=== PATIENT | male | born 1970 | race Caucasian/White ===

== ENCOUNTER 2018-11-26 12:33 | Inpatient (IN) ==
--- NOTE | 2018-11-26 12:59 | Emergency Department Note ---
Disposition Clinical Impression: Anemia, Renal failure Disposition: Admitted As Inpatient Condition: Serious Forms: ED Satisfaction Letter Time of Disposition: 13:38 General Adult HPI - General Chief complaint: ED Recheck/Abnormal Lab/Rx Stated complaint: abnormal labs Time Seen by Provider: 11/26/18 12:44 Source: patient Mode of arrival: ambulatory Limitations: no limitations Nursing Notes Reviewed: Yes Vital Signs Reviewed: Yes - History of Present Illness HPI Narrative: Patient presents emergency Department with chief complaint of abnormal laboratory studies. He states he received a phone call from his primary care physician's office today telling him that he was in renal failure and that he needed to get to the hospital. He has not had laboratory studies checked in a long time according to him. He states that he was getting these laboratory s tudies done for preoperative labs as he will supposed to have a laminectomy. He denies headache neck pain chest pain shortness of breath dizziness weakness fevers chills cough sputum production palpitations abdominal pain. He denies decreased urine output states he urinates 7-8 times a day feels like he completely empties his bladder every time has had no decreased urine, and no change. He has had no testicular pain no leg pain or leg swelling. He denies any palpitations. He denies any acute pain he has chronic low back pain which is unchanged from his baseline. States that he had no idea anything was wrong. He denies any black or bloody stool. Denies any other acute concerns. Pain Scale: 0 - Related Data Allergies Allergy/AdvReac Type Severity Reaction Status Date / Time Penicillins [PCN] Allergy Rash Verified 09/11/17 08:01 All systems ED: reviewed and negative except as stated. Review of Systems: As Per HPI Past Medical History - Past Medical History Medical history: Reports: hypertension Surgical history: Reports: orthopedic, other Psychiatric history: Reports: no psych history - Social History Smoking Status: Current every day smoker Smokeless Tobacco Status: No Alcohol use: Reports: none Drug use: Reports: none Physical Exam - General Limitations: no limitations, other (Slightly pale in appearance) General appearance: alert, in no apparent distress - Head Head exam: atraumatic, normocephalic - Eye Eye exam: Present: normal appearance, PERRL, EOMI, conjunctival injection (Slightly pale). Absent: scleral icterus - ENT ENT exam: normal exam - Neck Neck exam: Present: normal inspection - Chest Chest inspection: Present: normal inspection, symmetric chest wall rise - Respiratory Respiratory exam: Present: normal lung sounds bilaterally. Absent: respiratory distress - Cardiovascular Cardiovascular exam: Present: regular rate, normal rhythm, normal heart sounds. Absent: bradycardia, tachycardia, JVD - Abdominal Exam Abdominal exam: Present: soft, Non-Tender - Extremities Exam Extremities exam: Present: normal inspection, full ROM, other (Trace lower nonpitting edema no unilateral swelling palpable cord Homans sign or clinical evidence of DVT) - Expanded Lower Extremity Exam Foot/toe exam: Present: normal inspection, full ROM Neurovascular/Tendon exam: Present: normal capillary refill. Absent: pulse deficit, motor deficit, sensory deficit, extremity cold to touch - Back Exam Back exam: Present: normal inspection, full ROM. Absent: tenderness, CVA tenderness (R), CVA tenderness (L) - Neurological Exam Neurological exam: Present: alert, oriented X3, CN II-XII intact, normal gait - Psychiatric Psychiatric exam: Present: normal affect, normal mood - Skin Skin exam: Present: warm, dry, intact, normal color. Absent: rash, cyanosis Course Vital Signs Temperature 98.7 F 11/26/18 12:39 Pulse Rate 84 11/26/18 12:39 Respiratory Rate 18 11/26/18 12:39 Blood Pressure 182/105 11/26/18 12:39 O2 Sat by Pulse Oximetry 99 11/26/18 12:39 Temperature 98.7 F 11/26/18 12:39 Pulse Rate 84 11/26/18 12:39 Respiratory Rate 18 11/26/18 12:39 Blood Pressure 182/105 11/26/18 12:39 O2 Sat by Pulse Oximetry 99 11/26/18 12:39 Oxygen Delivery Oxygen Delivery Room Air Medical Decision Making - [facility] Narrative Medical decision making narrative: Patient had an IV placed. EKG was obtained, EKG was a normal sinus rhythm, question slight prominence of the T waves but no true peak T waves no UT prolongation no QRS widening no QT abnormality, no evidence of hyperkalemia or acute ischemia. Chest x-ray as interpreted by radiology showed no acute findings. CBC demonstrated a hemoglobin 8.2, however his hemoglobin was 8.8 within the last 1 month, and 9 approximate 2 months ago, I believe that in the face of this patient being without tachycardia without hypotension, and in fact has hypertension, without any symptoms of GI bleeding, that this is likely related to renal failure probably long-standing undiagnosed renal failure based upon his laboratory studies. I believe this is likely related to chronic renal disease. No indication for transfusion in the emergency department further evaluation for progressive anemia, as well as renal failure as inpatient renal panel d mehnaztrated a BUN of 70 with a creatinine of 6.35 mildly elevated blood glucose of 134 slightly low bicarbonate of 17 but no evidence of gap acidosis. Sodium was within acceptable limits potassium was 5.2 without significant hyperkalemia. He was given IV fluids. Bladder scan revealed no evidence of significant urinary retention, and patient was able to urinate over 300 mL here in the ER spontaneously. Patient will be admitted to the hospital for further evaluation and management of renal failure, chronicity unknown, as he has no old laboratory studies., with anemia. - Medical Records Medical records reviewed: Yes I reviewed the patient's medical records. - Lab Data Lab results reviewed: Yes I reviewed the patient's lab results. Result diagrams: 11/26/18 12:45 11/26/18 12:45 Lab Results 11/26/18 11/26/18 11/26/18 Range/Units 12:45 12:45 13:02 WBC 9.8 (4.3-11.1) K/mcL RBC 2.89 L (4.19-5.50) M/mcL Hgb 8.2 L (12.9-16.9) g/dL Hct 25.4 L (37.5-50.1) % MCV 87.9 (83.0-100.0) fL MCH 28.4 (28.0-33.3) pg MCHC 32.3 (31.6-35.5) g/dL RDW 13.2 (11.5-14.5) % Plt Count 288 (140-400) K/mcL MPV 9.5 (9.4-12.4) fL Immature Gran % 0.3 (0-4) % Seg Neutrophils % 62.7 % Lymphocytes % 23.5 % Monocytes % 7.2 % Eosinophils % 5.8 % Basophils % 0.5 % Neutrophils # 6.2 (1.6-8.9) K/mcL Lymphocytes # 2.3 (0.6-4.6) K/mcL Monocytes # 0.7 (0.0-1.3) K/mcL Eosinophils # 0.6 (0.0-0.6) K/mcL Basophils # 0.1 (0.0-0.2) K/mcL Sodium 138 (136-145) mEq/L Potassium 5.2 H (3.5-5.1) mEq/L Chloride 112 H (98-107) mEq/L Carbon Dioxide 17 L (23-29) mEq/L BUN 70 H (6-20) mg/dL Creatinine 6.35 H (0.70-1.30) mg/dL Est GFR ( Amer) 11 L (> 60) Est GFR (Non-Af Amer) 9 L (> 60) BUN/Creatinine Ratio 11 (6-26) Glucose 134 H (70-105) mg/dL Calculated Osmolality 308 H (280-300) Calcium 8.6 (8.6-10.3) mg/dL Magnesium 1.6 (1.6-2.6) mg/dL Urine Color Yellow (Yellow) Urine Clarity Clear (Clear) Urine pH 5.5 (5.0-8.0) pH Units Ur Specific [place] 1.017 (1.010-1.025) Urine Protein 100 H (Neg-Trace) mg/dL Urine Glucose (UA) Normal (Normal) mg/dL Urine Ketones Negative (Negative) mg/dL Urine Blood Large H (Negative) Urine Nitrite Negative (Negative) Urine Bilirubin Negative (Negative) Urine Urobilinogen Normal (Normal) mg/dL Ur Leukocyte Esterase Negative (Negative) Urine Microscopic RBC 30-50 H (0-3) per hpf Urine Microscopic WBC 0-3 (0-3) per hpf Ur Squamous Epith Cells Moderate H (None-Few) per lpf Urine Bacteria None Seen (None-Few) per hpf Hyaline Casts None Seen (None-Few) per lpf Ur Culture Indicated? NO (NO)
[2018-11-26 13:09] LABS: Basophils # 0.1 K/mcL (0.0-0.2); Basophils % 0.5 %; Eosinophils # 0.6 K/mcL (0.0-0.6); Eosinophils % 5.8 %; Hematocrit 25.4 % (37.5-50.1); Hemoglobin 8.2 g/dL (12.9-16.9); Immature Granulocytes % 0.3 % (0-4); Lymphocytes # 2.3 K/mcL (0.6-4.6); Lymphocytes % 23.5 %; Mean Corpuscular HGB Conc 32.3 g/dL (31.6-35.5); Mean Corpuscular Hemoglobin 28.4 pg (28.0-33.3); Mean Corpuscular Volume 87.9 fL (83.0-100.0); Mean Platelet Volume 9.5 fL (9.4-12.4); Monocytes # 0.7 K/mcL (0.0-1.3); Monocytes % 7.2 %; Neutrophils # 6.2 K/mcL (1.6-8.9); Platelet Count 288 K/mcL (140-400); Red Blood Count 2.89 M/mcL (4.19-5.50); Red Cell Distribution Width 13.2 % (11.5-14.5); Segmented Neutrophils % 62.7 %; White Blood Count 9.8 K/mcL (4.3-11.1)
[2018-11-26 13:20] LABS: Bilirubin,Urine Negative (Negative); Blood,Urine Large (Negative); Clarity,Urine Clear (Clear); Color,Urine Yellow (Yellow); Glucose,Urine (UA) Normal (Normal); Ketones,Urine Negative (Negative); Leukocyte Esterase,Urine Negative (Negative); Nitrite,Urine Negative (Negative); PH,Urine 5.5 pH Units (5.0-8.0); Protein,Urine 100 mg/dL (Neg-Trace); Specific Gravity,Urine 1.017 (1.010-1.025); Urobilinogen,Urine Normal (Normal)
[2018-11-26 13:23] LABS: Bacteria,Urine None Seen per hpf (None-Few); Hyaline Casts,Urine None Seen per lpf (None-Few); RBC,Urine 30-50 per hpf (0-3); Squamous Epithelial Cell,Urine Moderate per lpf (None-Few); WBC,Urine 0-3 per hpf (0-3)
[2018-11-26 13:27] LABS: Calcium 8.6 mg/dL (8.6-10.3); Magnesium 1.6 mg/dL (1.6-2.6); Potassium 5.2 mEq/L (3.5-5.1)
[2018-11-26] MEDS ORDERED: 0.9 % Sodium Chloride 1,000 ML IVC ONE (13:34)
[2018-11-26] MEDS ORDERED: Ondansetron ODT 4 MG TAB.RAPDIS SL PRN (15:35)
[2018-11-26] MEDS ORDERED: Naloxone 0.4 MG/ML INJ IVP PRN (15:35)
[2018-11-26] MEDS ORDERED: Acetaminophen 325 MG TABLET PO PRN (15:35)
[2018-11-26] MEDS ORDERED: *HR* HYDROcodone/Acet 5/325 mg TABLET PO PRN (15:57)
[2018-11-26 16:05] LABS: Uric Acid 8.1 mg/dL (2.3-7.6)
--- NOTE | 2018-11-26 16:05 | Nephrology Consult Note ---
<Sarah Mesa - Last Filed: 11/27/18 09:30> Date of Encounter: 11/27/18 Time of Encounter: 15:59 Assessment and Plan (1) DIONNE (acute kidney injury) Status: Acute Unknown kidney function at baseline. GFR is 9 today. Avoid nephrotoxins and renal dose all medications. Strict I/O Daily weights. D/c Motrin. Hold Lisinopril. (2) Hyperkalemia Status: Acute K is 5.2, stable. Low potassium, renal diet. (3) Anemia Status: Suspected Hgb is 8.2, no obvious signs of blood. Iron profile ordered for in the am. Qualifiers: Anemia type: due to chronic kidney disease Chronic kidney disease stage: unspecified stage Qualified Code(s): N18.9 - Chronic kidney disease, unspecified; D63.1 - Anemia in chronic kidney disease History of Present Illness - Reason for Consult Consult date: 11/26/18 Acute Kidney Injury Requesting physician: Lul Anglin - Chief Complaint acute kidney injury - History of Present Illness Mr. Hawkins is a 48 year old male who presented to ED under the advice of his PCP. He established with his current primary care provider "a few weeks ago" and he wanted some routine labs done. The patient is scheduled for stimulator related to an old workers comp injury in 1999. Under the advisement of his current Worker's Compensation physician he was taking 800 mg of Motrin 3 times a day every day for approximately the last year. PMH: Hypertension. Denies chest pain or shortness of breath. Denies nausea, vomiting or diarrhea. Denies any dysuria or other urinary symptoms. Denies hematuria. Reports he voids 7 or 8 times a day without difficulty. Denies fatigue. [facility] were consulted to up his acute kidney injury. There are no previous lab work in the present system. Patient reports he does not know the last time his blood work was drawn. He has been disabled from work since 2008 and gets disability and Social Security, and Worker's Comp. DIONNE workup has been ordered. Retroperitoneal ultrasound ordered. Serum and urine studies ordered. Blood pressure at bedside was 179/111 and 193/104. Patient was started on lisinopril by PCP in the last few weeks, recommend holding that due to DIONNE. CKD workup ordered by primary team, will await results. Lives at home alone. Sister and mother are at bedside. Patient is good historian and provides accurate information. Is a current 1 pack per day smoker. An IV EtOH or illicit drug use. No family history of chronic kidney disease or hemodialysis. Has never been on dialysis in the past. Past Med Surg Social Fam HX - Past Medical History Medical history: hypertension Additional medical history: Normocytic Anemia. Sleep Apnea. Smoker. Tobacco Use. Other Intervertebral Disc Displacement, Lumbar Region. Postlaminectomy Syndrome. Obese Body Habits. Laminectomy. Lumbar Post Laminectomy Syndrome Psychiatric history: no psych history - Past Surgical History Surgical History: orthopedic, other Additional surgical history: back surgery. right hand surgery x2. Laminectomy. SCS Trial - Social History Smoking Status: Current every day smoker Packs per day: 1 Smokeless Tobacco Status: No Alcohol use: none Drug use: none Medications and Allergies Carvedilol [Coreg] 3.125 mg PO BIDWM #30 tablet 11/29/18 [Rx] Carvedilol [Coreg] 3.125 mg PO BIDWM #6 tablet 11/29/18 [Rx] Cholecalciferol (D-3) [Vitamin D] 1,000 unit PO DAILY #3 tablet 11/29/18 [Rx] Cholecalciferol (D-3) [Vitamin D] 1,000 unit PO DAILY #30 tablet 11/29/18 [Rx] Ferrous Sulfate 325 mg PO BIDWM #6 tablet 11/29/18 [Rx] Ferrous Sulfate 325 mg PO BIDWM #60 tablet 11/29/18 [Rx] Gabapentin [Neurontin] 100 mg PO TID #9 capsule 11/29/18 [Rx] Gabapentin [Neurontin] 100 mg PO TID #90 capsule 11/29/18 [Rx] Nicotine Patch [Nicoderm] 21 mg TD DAILY patch.td24 11/29/18 [Rx] Sodium Bicarbonate 650 mg PO BID #6 tablet 11/29/18 [Rx] Sodium Bicarbonate 650 mg PO BID #60 tablet 11/29/18 [Rx] Sodium Zirconium Cyclosilicate [Lokelma] 10 gm PO DAILY #30 powd.pack 11/29/18 [Rx] amLODIPine [Norvasc] 10 mg PO DAILY #30 tablet 11/29/18 [Rx] amLODIPine [Norvasc] 10 mg PO DAILY #6 tablet 11/29/18 [Rx] Allergy/AdvReac Type Severity Reaction Status Date / Time Penicillins [PCN] Allergy Rash Verified 11/26/18 18:14 Review of Systems All Systems review (narrative): The remainder of the systems are negative. Constitutional: no chills, no fatigue, no fever(s) Cardiovascular: no chest pain, no dyspnea, no edema Gastrointestinal: no diarrhea, no nausea, no vomiting Genitourinary Male: no hematuria, no urinary frequency, no urinary hesitancy, no urinary urgency Neurological: no confusion Exam - Vital Signs Vital signs: Initial Vital Signs Temp Pulse Resp BP Pulse Ox 98.7 F 84 18 182/105 99 11/26/18 12:39 11/26/18 12:39 11/26/18 12:39 11/26/18 12:39 11/26/18 12:39 Vital Signs - Last 8 Hours Temp Pulse Resp BP Pulse Ox 11/26/18 15:01 18 193/104 11/26/18 13:43 82 18 176/111 99 11/26/18 12:39 98.7 F 84 18 182/105 99 Intake and Output 11/25/18 11/26/18 11/26/18 23:59 07:59 15:59 Intake Total 1000 / 1000 Balance 1000 / 1000 Intake: IV Fluids 1000 / 1000 0.9 % Sodium Chloride 1,000 ML 1000 / 1000 @ 999 mls/hr IVC .Q1H1M ONE Rx# :[id number] Other: Weight 134.263 kg Patient Weight 11/26/18 23:59 Weight 134.263 kg - General Appearance General appearance: well-developed, well-nourished EENT: ATNC, hearing intact, vision intact Neck: supple Respiratory: clear Cardiology: no edema, normal S1, normal S2 Gastrointestinal: normoactive bowel sounds, no tenderness, no guarding Integumentary: no rash, warm and dry Neurologic: alert and oriented x3 Musculoskeletal: no deformities, no erythema Psychiatric: mood/affect appropriate, cooperative Results - Lab Results 11/27/18 04:03 11/27/18 04:03 Most recent lab results 11/26/18 12:45 Calcium 8.6 Magnesium 1.6 Consult Discharge Plan - Plan Referrals: Abner Bedolla [Primary Care Provider] - (Please follow up in 1-2 weeks.) Jayjay Javed, [Partnered Physician] - (Will call with appt) Prescriptions: Carvedilol [Coreg] 3.125 mg PO BIDWM #30 tablet Transmission Status: Received by [facility] Carvedilol [Coreg] 3.125 mg PO BIDWM #6 tablet Transmission Status: Received by [facility] 1427 Ferrous Sulfate 325 mg PO BIDWM #60 tablet Transmission Status: Received by [facility] Ferrous Sulfate 325 mg PO BIDWM #6 tablet Transmission Status: Received by [facility] 1427 Sodium Zirconium Cyclosilicate [Lokelma] 10 gm PO DAILY #30 powd.pack Transmission Status: Received by [facility] Gabapentin [Neurontin] 100 mg PO TID #90 capsule Transmission Status: Received by [facility] Gabapentin [Neurontin] 100 mg PO TID #9 capsule Transmission Status: Received by [facility] 1427 amLODIPine [Norvasc] 10 mg PO DAILY #30 tablet Transmission Status: Received by [facility] amLODIPine [Norvasc] 10 mg PO DAILY #6 tablet Transmission Status: Received by [facility] 1427 Sodium Bicarbonate 650 mg PO BID #60 tablet Transmission Status: Received by [facility] Sodium Bicarbonate 650 mg PO BID #6 tablet Transmission Status: Received by [facility] 1427 Cholecalciferol (D-3) [Vitamin D] 1,000 unit PO DAILY #30 tablet Transmission Status: Received by [facility] Cholecalciferol (D-3) [Vitamin D] 1,000 unit PO DAILY #3 tablet Transmission Status: Received by [facility] 1427 <Alfa Dangelo - Last Filed: 12/08/18 02:04> Date of Encounter: 11/26/18 Assessment and Plan (1) DIONNE (acute kidney injury) Status: Acute (2) Hyperkalemia Status: Acute (3) Anemia Status: Suspected Qualifiers: Anemia type: due to chronic kidney disease Chronic kidney disease stage: stage 5, not on chronic dialysis Qualified Code(s): N18.5 - Chronic kidney disease, stage 5; D63.1 - Anemia in chronic kidney disease (4) Vitamin D deficiency Status: Acute Past Med Surg Social Fam HX - Family History Maternal Grandmother Hx Family Endocrine Disorder: Yes (dm) Exam - Vital Signs Vital signs: Initial Vital Signs Temp Pulse Resp BP Pulse Ox 98.7 F 84 18 182/105 99 11/26/18 12:39 11/26/18 12:39 11/26/18 12:39 11/26/18 12:39 11/26/18 12:39 Results - Lab Results 11/28/18 04:04 11/29/18 05:12 - Attending Attestation I examined this patient and my medical decision-making was reviewed with the Resident Physician/SERVICE MECHANIC. I agree with the documented findings, disposition and treatment plan as described except to the extent set forth below. 48 y o male with PMH of HTN and chronic pain on motrin chronically admitted with abnormal labs. Renal consulted for elevated SCr with GFR down to 9.On exam: Gen: NAD, lungs clear, heart s1s2, abd soft NT, Ext no LE edema bilat and neuro AAOx3. Initiate DIONNE workup, baseline unknown. No acute indication for END FRAZER at this time. Avoid nephrotoxins if possible including all NSAIDs.
[2018-11-26 16:51] LABS: Complement C3 123 mg/dL (87-200)
[2018-11-26] MEDS: Ringers Solution, Lactated 1,000 ML IVC SCH (17:05)
[2018-11-26] MEDS: *HR* Heparin 5,000 UNIT/ML VIAL SQ SCH (17:05)
[2018-11-26] MEDS: amLODIPine 5 MG TABLET PO SCH (17:30)
--- NOTE | 2018-11-26 18:25 | Internal Med History&Physical ---
Date of Encounter: 11/26/18 Time of Encounter: 14:45 Internal Medicine - H&P: HPI Chief complaint: lab problem Admitted From: Emergency Dept Plans for Post Hospital Care: Home History of present illness: Mr. Hawkins is a 48 year old male with hx of HTN and chronic back pain presented to ED due to abnormal labs. Mr Hawkins was to have spinal stimulator placed by Dr. Ordaz. During preop labs he was found to have creatinine over 6. He was called and sent to ED. He denies prior hx of renal issues. He has recently been diagnosed with hypertension and started on meds (doesn't know name). He also takes Ibuprofen 8000mg 2-3 times daily. He denies any CP or SOB. No cough. Does smoke 1ppd. No abd pain. No N/V/C/D. No recent illness. No headache or neuro symptoms. No weight gain or edema. Denies ETOH or drug use. No issues with urination. Family hx of renal disease - dialysis due to DM. At the time of my evaluation he is feeling baseline. Mother is at bedside and confirms his history. She also relayed that about 2 months ago he was outside and developed a rash on his lower extremities. He felt it looked like poison efraín. It took a long time to go away. Past Med Surg Social Fam HX - Past Medical History Medical history: hypertension Additional medical history: Normocytic Anemia. Sleep Apnea. Smoker. Tobacco Use. Other Intervertebral Disc Displacement, Lumbar Region. Postlaminectomy S yndrome. Obese Body Habits. Laminectomy. Lumbar Post Laminectomy Syndrome Psychiatric history: no psych history - Past Surgical History Surgical History: orthopedic, other Additional surgical history: back surgery. right hand surgery x2. Laminectomy. SCS Trial - Social History Smoking Status: Current every day smoker Packs per day: 1 Smokeless Tobacco Status: No Alcohol use: none Drug use: none - Family History Maternal Grandmother Hx Family Endocrine Disorder: Yes (dm) Internal Medicine - H&P: Meds Gabapentin [Neurontin] 300 mg PO TID 11/26/18 [History] Ibuprofen [Ibu] 800 mg PO BID PRN 11/26/18 [History] Lisinopril/Hydrochlorothiazide [Lisinopril-Hctz 20-12.5 mg Tab] 1 each PO DAILY 11/26/18 [History] Allergy/AdvReac Type Severity Reaction Status Date / Time Penicillins [PCN] Allergy Rash Verified 09/11/17 08:01 All Systems PM: A 10-system review of systems was performed and is negative for pertinent findings except as documented above in the HPI. - Constitutional Constitutional: as per HPI, no fever(s), no malaise, no weight gain - EENT Eyes: no blurry vision, no pain Ears: no decreased hearing Nose, mouth and throat: no epistaxis, no mouth pain, no sinus pain - Cardiovascular Cardiovascular ROS IM: dyspnea, dyspnea on exertion, no chest pain, no edema, no lightheadedness, no orthopnea, no palpitations, no paroxysmal nocturnal dyspnea - Respiratory Respiratory: dyspnea on exertion, no hemoptysis, no wheezing, no pain with cough - Gastrointestinal Gastrointestinal: no abdominal pain, no constipation, no diarrhea, no nausea, no tenesmus - Genitourinary Genitourinary ROS male: no difficulty urinating, no hematuria, no nocturia, no urinary frequency - Musculoskeletal Musculoskeletal ROS IM: back pain, limited range of motion - Integumentary Integumentary IM: no rash - Neurological Neurological ROS: no abnormal gait, no headache(s), no numbness - Psychiatric Psychiatric: no anxiety, no depression - Endocrine Endocrine IM: no excessive sweating - Hematologic/Lymphatic Hematologic/Lymphatic: no easy bleeding - Allergic/Immunologic Allergic/Immunologic: no itchy eyes - Constitutional Vitals: Temp Pulse Resp BP Pulse Ox 99.0 F 78 17 173/96 99 11/26/18 16:42 11/26/18 16:42 11/26/18 16:42 11/26/18 16:42 11/26/18 16:42 General appearance: Present: A&O X 3, pleasant, answers questions appropriately Exam: See below - Head Head exam: Present: atraumatic, normocephalic - Eye Eye exam: Present: EOMI, conjuntiva pink - ENT ENT exam: Present: normal exam - Neck Neck exam general surgery: Present: supple. Absent: lymphadenopathy - Respiratory Respiratory exam: Present: CTAB. Absent: rales, rhonchi, wheezes - Cardiovascular Cardiovascular exam: Present: distant heart sounds, RRR. Absent: +S4, systolic murmur - GI/Abdominal GI/Abdominal exam: Present: soft. Absent: tenderness - Extremities Exam Extremities exam: Present: pedal edema, warm - Neurological Exam Neurological exam: Present: alert, oriented X3, no focal deficits - Skin Skin exam: Present: dry, warm. Absent: rash Internal Med - H&P Results - Labs CBC & Chem 7: 11/26/18 12:45 11/26/18 12:45 Labs: Short CBC 11/26/18 Range/Units 12:45 WBC 9.8 (4.3-11.1) K/mcL Hgb 8.2 L (12.9-16.9) g/dL Hct 25.4 L (37.5-50.1) % Plt Count 288 (140-400) K/mcL Neutrophils # 6.2 (1.6-8.9) K/mcL BMP 11/26/18 12:45 Sodium 138 Potassium 5.2 H Chloride 112 H Carbon Dioxide 17 L BUN 70 H Creatinine 6.35 H Glucose 134 H Calcium 8.6 Urine 11/26/18 Range/Units 13:02 Urine Color Yellow (Yellow) Urine Clarity Clear (Clear) Urine pH 5.5 (5.0-8.0) pH Units Ur Specific [place] 1.017 (1.010-1.025) Urine Protein 100 H (Neg-Trace) mg/dL Urine Glucose (UA) Normal (Normal) mg/dL - Impressions ITS Impressions Chest X-Ray 11/26/18 12:58 IMPRESSION: 1. No acute radiographic abnormality in the chest. D/ / Sorin Matson MD / Sorin Matson MD Interpreting Provider: Sorin Matson MD - Assessment and Plan (1) Renal failure Current Visit: Yes Status: Suspected Assessment and plan: Pt presented to ED due to abnormal labs. No prior hx of renal failure. Admit to hospital. IV fluids tonight. Labs ordered. Renal US Nephrology consult Echo Qualifiers: Renal failure chronicity: acute Acute renal failure type: with acute renal cortical necrosis Qualified Code(s): N17.1 - Acute kidney failure with acute cortical necrosis (2) Anemia Current Visit: Yes Status: Suspected Assessment and plan: Pt with anemia on labs - no sign of bleeding. Recheck in AM. Qualifiers: Anemia type: due to chronic kidney disease Chronic kidney disease stage: unspecified stage Qualified Code(s): N18.9 - Chronic kidney disease, unspecified; D63.1 - Anemia in chronic kidney disease (3) HTN (hypertension) Current Visit: Yes Status: Acute Assessment and plan: Pt recently diagnosed with HTN He has renal failure and hematuria as well Nephrology to see. Qualifiers: Hypertension type: unspecified Qualified Code(s): I10 - Essential (primary) hypertension (4) Tobacco abuse Current Visit: Yes Status: Chronic Assessment and plan: Cessation counselling (5) Hyperkalemia Current Visit: Yes Status: Acute Assessment and plan: Related to renal disease - Time Spent With Patient Total time spent is greater than 50% in coordination of care (as documented) at patient's floor/unit and/or counseling patient:
[2018-11-26] MEDS: Gabapentin 100 MG CAPSULE PO SCH (20:13)
[2018-11-26 21:12] LABS: Hepatitis A Antibody IgM Nonreactive (Nonreactive); Hepatitis B Core IgM Nonreactive (Nonreactive); Hepatitis B Surface Antigen Nonreactive (Nonreactive); Hepatitis C Virus Antibody Nonreactive (Nonreactive)
--- NOTE | 2018-11-26 21:24 | Electrocardiograph Report ---
[address] [place] [address] Test Date: 2018-11-26 Pat Name: Raheel Hawkins Department: [id number] Room: 2A38 Gender: Ditcher: : 1970 Requested By: Rivera Perkins Order Number: [id number] Reading MD: Annelise Ross Measurements Intervals [place] Rate: 84 P: 30 MD: 134 QRS: 73 QRSD: 95 T: 42 QT: 351 QTc: 415 Interpretive Statements Sinus rhythm ST elev, probable normal early repol pattern Electronically Signed On 11-26-2018 21:22:57 EDT by Annelise Ross
[2018-11-27] MEDS: Ringers Solution, Lactated 1,000 ML IVC SCH (03:46)
[2018-11-27 04:30] LABS: Hematocrit 24.6 % (37.5-50.1); Hemoglobin 7.9 g/dL (12.9-16.9); Mean Corpuscular HGB Conc 32.1 g/dL (31.6-35.5); Mean Corpuscular Hemoglobin 28.4 pg (28.0-33.3); Mean Corpuscular Volume 88.5 fL (83.0-100.0); Mean Platelet Volume 9.4 fL (9.4-12.4); Platelet Count 249 K/mcL (140-400); Red Blood Count 2.78 M/mcL (4.19-5.50); Red Cell Distribution Width 13.2 % (11.5-14.5); White Blood Count 8.1 K/mcL (4.3-11.1)
[2018-11-27 04:53] LABS: Albumin 3.2 g/dL (3.5-5.7); Albumin/Globulin Ratio 1.1 (1.1-2.2); Bilirubin,Total 0.2 mg/dL (0.3-1.0); Calcium 8.3 mg/dL (8.6-10.3); Chol/HDL Ratio 5.3 (0-4.9); Magnesium 1.6 mg/dL (1.6-2.6); Phosphorous 5.6 mg/dL (2.7-4.5); Potassium 5.1 mEq/L (3.5-5.1); Total Protein 6.2 g/dL (6.4-8.9)
[2018-11-27 04:54] LABS: % Iron Saturation 17 % (20-55); Iron 44 mcg/dL (65-175); Transferrin 185 mg/dL (203-362)
[2018-11-27 05:16] LABS: Folate 3.4 ng/mL (3.0-16.0)
[2018-11-27] MEDS: *HR* Heparin 5,000 UNIT/ML VIAL SQ SCH ×2 (06:10→19:12)
[2018-11-27] MEDS: Gabapentin 100 MG CAPSULE PO SCH ×3 (07:46→20:16)
[2018-11-27] MEDS: amLODIPine 5 MG TABLET PO SCH (07:46)
--- NOTE | 2018-11-27 10:04 | Internal Med Progress Note ---
<Morocho,Loc T - Last Filed: 11/27/18 16:12> Hospitalist Progress Note - Encounter Date of Encounter: 11/27/18 Time of Encounter: 08:15 - Subjective Interval History: 48yo male with h/o HTN, worker's comp back injury, was seen at the ED when Dr. Lu was planning to insert a spinal stimulator but on pre-op clearance showed elevated creatinine and was sent to ED, and admitted for management of his DIONNE. Pt was seen this morning sitting on the edge of his bed in no apparent distress. His mother was also present in the room this AM. He reported that he feels "fine" and denies any fevers, chills, nausea, vomiting, chest pain, shortness of breath, dysuria, or any other urinary symptoms or pain in general. He stated that he slept well and ate well and is only concerned about missing his colonoscopy scheduled Dec 05 and spinal stimulator implant scheduled for Dec 08. Other than this he has no other concerns or questions. - Exam Vitals: Temp Pulse Resp BP Pulse Ox 97.6 F 81 16 155/84 98 11/27/18 06:55 11/27/18 06:55 11/27/18 06:55 11/27/18 06:55 11/27/18 06:55 Exam: General: Patient was found awake and sitting on the edge of the bed in no apparent distress. Alert and cooperative and answered all questions. Heart: RRR, no murmurs, rubs, or gallops Lungs: CTA bilaterally without wheezing or rhonchi Abd: Normal active bowel sounds x 4 quadrants, soft, non distended, non tender to palpation Back: No tenderness to palpation of the entire spine and no CVA tenderness Ext: No LE edema, moves all extremities well - Assessment and Plan (1) [id number] kidney injury Current Visit: Yes Status: Acute Assessment and Plan: - Creatinine of 6.35 on admission with no prior h/o kidney disease - Likely acute on chronic due to recent use of 800mg Ibuprofen 2-3/day for back pain - Nephro on board - recommending strict I/Os, daily weights, holding lisinopril and stopping motrin, and renal biopsy completed this afternoon - will continue to follow recommendations and follow up pending path results of biopsy - Creatinine down today at 5.99 with GFR of 10 - BUN down today at 67 from 70 yesterday - UA positive for protein 100, large blood, 30-50 microscopic RBCs - Retroperitoneal U/S shows echogenic renal cortex due to medical renal disease with enlarged prostate - Continue IVNS hydration to improve DIONNE - Holding home med of Lisinopril and stopped Ibuprofen (2) Anemia Current Visit: Yes Status: Chronic Assessment and Plan: - Pt denies gross blood in urine and denies any urinary symptoms - Likely anemia of chronic disease from CKI with Fe 44, % sat 17, Transferrin 55 - Likely worse from UA showing large blood and 30-50 microscopic RBCs - H&H down trending with Hb 8.2 to 7.9 and Hct 25.4 to 24.6 (3) HTN (hypertension) Current Visit: Yes Status: Chronic Assessment and Plan: - Normally taking home med of Lisinopril/HCTZ at home but held due to DIONNE on CKI - Treating BP now with Norvasc 5mg PO Qday (4) Hyperkalemia Current Visit: Yes Status: Acute Assessment and Plan: - Likely due to the DIONNE on CKI - Improving a bit down trending to 5.1 from 5.2 - Pt denies any chest pains or palpitations - Will continue to monitor and trend DVT Prophylaxis: Pt is ambulatory - Time Spent with Patient Total time spent is greater than 50% in coordination of care (as documented) at patient's floor/unit and/or counseling patient: Internal Medicine: Result - Labs CBC & Chem 7: 11/27/18 04:03 11/27/18 04:03 Labs: Short CBC 11/26/18 11/27/18 Range/Units 12:45 04:03 WBC 9.8 8.1 (4.3-11.1) K/mcL Hgb 8.2 L 7.9 L (12.9-16.9) g/dL Hct 25.4 L 24.6 L (37.5-50.1) % Plt Count 288 249 (140-400) K/mcL Neutrophils # 6.2 (1.6-8.9) K/mcL BMP 11/26/18 11/27/18 12:45 04:03 Sodium 138 138 Potassium 5.2 H 5.1 Chloride 112 H 112 H Carbon Dioxide 17 L 17 L BUN 70 H 67 H Creatinine 6.35 H 5.99 H Glucose 134 H 99 Calcium 8.6 8.3 L Liver Function 11/27/18 Range/Units 04:03 Total Bilirubin 0.2 L (0.3-1.0) mg/dL AST 13 (13-39) Units/L ALT 16 (7-52) Units/L Alkaline Phosphatase 74 (34-104) Units/L Albumin 3.2 L (3.5-5.7) g/dL Urine 11/26/18 Range/Units 13:02 Urine Color Yellow (Yellow) Urine Clarity Clear (Clear) Urine pH 5.5 (5.0-8.0) pH Units Ur Specific [place] 1.017 (1.010-1.025) Urine Protein 100 H (Neg-Trace) mg/dL Urine Glucose (UA) Normal (Normal) mg/dL - Impressions Impressions Chest X-Ray 11/26/18 12:58 IMPRESSION: 1. No acute radiographic abnormality in the chest. D/ / Sorin Matson MD / Sorin Matson MD Interpreting Provider: Sorin Matson MD Retroperitoneum Ultrasound 11/26/18 19:26 IMPRESSION: No evidence of hydronephrosis. Echogenic renal cortex may indicate medical renal disease. Enlarged and heterogeneous prostate gland. Correlate with PSA levels. D/ / 11/26/2018 19:30:31 Isaias Carney MD / [facility] Interpreting Provider: Isaias Carney MD Consult Discharge Plan - Plan Referrals: Abner Bedolla [Primary Care Provider] - <Lul Anglin - Last Filed: 11/27/18 16:40> Hospitalist Progress Note - Encounter Date of Encounter: 11/27/18 - Exam Vitals: Temp Pulse Resp BP Pulse Ox 98.1 F 98 22 134/83 97 11/27/18 12:05 11/27/18 15:44 11/27/18 15:44 11/27/18 15:44 11/27/18 15:44 - Assessment and Plan (1) Renal failure Current Visit: Yes Status: Suspected (2) Anemia Current Visit: Yes Status: Suspected (3) HTN (hypertension) Current Visit: Yes Status: Chronic (4) Tobacco abuse Current Visit: Yes Status: Chronic (5) Hyperkalemia Current Visit: Yes Status: Acute - Time Spent with Patient Total time spent is greater than 50% in coordination of care (as documented) at patient's floor/unit and/or counseling patient: Internal Medicine: Result - Labs CBC & Chem 7: 11/27/18 04:03 11/27/18 04:03 Labs: Short CBC 11/27/18 Range/Units 04:03 WBC 8.1 (4.3-11.1) K/mcL Hgb 7.9 L (12.9-16.9) g/dL Hct 24.6 L (37.5-50.1) % Plt Count 249 (140-400) K/mcL BMP 11/27/18 04:03 Sodium 138 Potassium 5.1 Chloride 112 H Carbon Dioxide 17 L BUN 67 H Creatinine 5.99 H Glucose 99 Calcium 8.3 L Liver Function 11/27/18 Range/Units 04:03 Total Bilirubin 0.2 L (0.3-1.0) mg/dL AST 13 (13-39) Units/L ALT 16 (7-52) Units/L Alkaline Phosphatase 74 (34-104) Units/L Albumin 3.2 L (3.5-5.7) g/dL - Impressions Impressions Retroperitoneum Ultrasound 11/26/18 19:26 IMPRESSION: No evidence of hydronephrosis. Echogenic renal cortex may indicate medical renal disease. Enlarged and heterogeneous prostate gland. Correlate with PSA levels. D/ / 11/26/2018 19:30:31 Isaias Carney MD / [facility] Interpreting Provider: Isaias Carney MD Echocardiogram 11/27/18 14:26 Impressions: LVEF 55-60%. Moderate left ventricular diastolic dysfunction. Normal right ventricular structure and function. No significant valvular dysfunction. No pulmonary hypertension based on TR signal obtained. Left Ventricular Wall Motion: Rest Echo Findings All wall segments showed normal motion. Findings: Study Quality * Technically adequate exam. ECG Findings * Normal sinus rhythm. Left Ventricle * LVEF 55-60%. * Moderate left ventricular diastolic dysfunction. * LV chamber size and wall thickness are normal. Right Ventricle * Normal right ventricular structure and function. Left Atrium * Moderately dilated left atrium. Right Atrium * Normal right atrial size. Aortic Valve * No aortic regurgitation. * Aortic valve not well visualized. * No aortic stenosis. Mitral Valve * Normal mitral valve structure. * No mitral stenosis. * Trace mitral regurgitation. Tricuspid Valve * Normal tricuspid valve structure. * Trace tricuspid regurgitation. * Estimated RA pressure is 3 mmHg. Pulmonic Valve * Pulmonic valve is not well visualized. * No pulmonic stenosis. * No pulmonic regurgitation. Pulmonary Artery * Pulmonary artery not well visualized. Aorta * Normally sized aortic root. Pericardium * There is no pericardial effusion present. Interatrial Septum * No evidence of PFO by color Doppler. IVC * The IVC is not dilated. Renal Biopsy CT 11/27/18 15:58 IMPRESSION: CT-guided random kidney biopsy. No immediate complications. D/ / Adolph Cuba MD / Adolph Cuba MD Interpreting Provider: Adolph Cuba MD - Attending Attestation The history, physical exam, and medical decision making was performed by the medical student either while I was physically present and actively involved or I personally re-performed the exam and medical decision making. I have verified the accuracy of the medical student's documentation with regards to the history, physical exam findings, and medical decision making on 11/27/18. Mr Hawkins is currently admitted for acute renal failure and hypertension. He remains moderate to high risk due to potential for worsening clinical and renal status. Mr Hawkins is resting at this time. No new issues overnight. No CP or SOB. No worsening edema. Labs minimally improved overnight. Family at bedside. Exam Alert. Comfortable. NC. EOMI. Mucus membranes dry. Neck supple. Heart not tachy. No wheeze. Abd soft. No change in legs. No rash. Moves all extremities. I/P 1. Renal failure - most likely NSAID induced versus other (?GN). Renal biopsy today. Labs neg thus far. 2. HTN - better controlled on Norvasc 3. Enlarged prostate on ultrasound - screening PSA ordered. FUrther diagnoses and plan as above. <Morocho,Loc T - Last Filed: 11/27/18 16:12> (1) [id number] kidney injury Qualifiers: Acute renal failure type: unspecified Chronic kidney disease stage: unspecified stage Qualified Code(s): N17.9 - Acute kidney failure, unspecified; N18.9 - Chronic kidney disease, unspecified (2) Anemia Qualifiers: Anemia type: unspecified type Qualified Code(s): D64.9 - Anemia, unspecified (3) HTN (hypertension) Qualifiers: Hypertension type: unspecified Qualified Code(s): I10 - Essential (primary) hypertension <Lul Anglin A - Last Filed: 11/27/18 16:40> (1) Renal failure Qualifiers: Renal failure chronicity: acute Acute renal failure type: with acute renal cortical necrosis Qualified Code(s): N17.1 - Acute kidney failure with acute cortical necrosis (2) Anemia Qualifiers: Anemia type: due to chronic kidney disease Chronic kidney disease stage: unspecified stage Qualified Code(s): N18.9 - Chronic kidney disease, unspecified; D63.1 - Anemia in chronic kidney disease (3) HTN (hypertension) Qualifiers: Hypertension type: unspecified Qualified Code(s): I10 - Essential (primary) hypertension
[2018-11-27 12:56] LABS: Prostate Specific Antigen 0.88 ng/mL (Less than 4.00)
--- NOTE | 2018-11-27 13:48 | Nephrology Progress Note ---
Date of Encounter: 11/27/18 Time of Encounter: 13:46 - Assessment and Plan (1) DIONNE (acute kidney injury) Current Visit: Yes Status: Acute Unknown kidney function at baseline. GFR is 10 today. Avoid nephrotoxins and renal dose all medications. Strict I/O Daily weights. D/c Motrin. Hold Lisinopril. Continue Norvasc. Renal biopsy ordered for today, pt agreeable. (2) Hyperkalemia Current Visit: Yes Status: Acute K is 5.1, stable. Low potassium, renal diet. (3) Anemia Current Visit: Yes Status: Suspected Hgb is 7.9, no obvious signs of blood. Tsat 17 Iron 44 Ferrous Sulfate ordered. Qualifiers: Anemia type: due to chronic kidney disease Chronic kidney disease stage: unspecified stage Qualified Code(s): N18.9 - Chronic kidney disease, unspecified; D63.1 - Anemia in chronic kidney disease (4) Vitamin D deficiency Current Visit: Yes Status: Acute Cholecalciferol ordered. Subjective Principal diagnosis: abnormal labs Interval history: Pt seen and examined. Doing well. Denies chest pain or shortness of breath. Denies nausea, vomiting, diarrhea. Objective - Vital Signs Vital signs: Vital Signs Temp Pulse Resp BP Pulse Ox 11/27/18 12:05 98.1 F 79 16 139/76 97 11/27/18 06:55 97.6 F 81 16 155/84 98 11/27/18 04:18 98.0 F 75 18 144/78 99 11/27/18 00:02 98.2 F 93 18 118/71 97 11/26/18 19:32 97.6 F 77 16 133/76 100 11/26/18 16:42 99.0 F 78 17 173/96 99 11/26/18 15:01 18 193/104 Intake and Output 11/26/18 11/27/18 11/27/18 23:59 07:59 15:59 Intake Total 1000 / 1480 480 / 1480 Output Total 1680 / 1680 Balance -680 / -200 480 / -200 Intake: IV Fluids 1000 / 1000 Lactated Ringers 1,000 ML @ 100 1000 / 1000 mls/hr IVC .Q10H LOTUS Rx#: [id number] Oral 480 / 480 Output: Urine 1680 / 1680 Other: Meal Breakfast Percent of Meal Consumed 100% Weight 135 kg Patient Weight 11/27/18 23:59 Weight 135 kg - General Appearance General appearance: Present: well-developed, well-nourished EENT: Present: ATNC, hearing intact, vision intact Neck: Present: supple Respiratory: Present: clear Cardiology: Present: edema (trace bilat lower extremity edema noted. ), normal S1, normal S2 Gastrointestinal: Present: normoactive bowel sounds, no tenderness, no guarding Integumentary: Present: no rash, warm and dry Neurologic: Present: alert and oriented x3 Musculoskeletal: Present: no deformities, no erythema Psychiatric: Present: mood/affect appropriate, cooperative - Lab 11/27/18 04:03 11/27/18 04:03 Most recent lab results 11/27/18 04:03 Calcium 8.3 L Phosphorus 5.6 H Magnesium 1.6 Consult Discharge Plan - Plan Referrals: Abner Bedolla [Primary Care Provider] -
[2018-11-27 14:20] LABS: Protein/Creatinine Ratio,Urine 1.97 mg/mg (0.00-0.20); Sodium, Urine 103.4 mEq/L
[2018-11-27] MEDS ORDERED: *HR* FentaNYL (PF) 100 MCG/2 ML VIAL IVP ONE (14:49)
[2018-11-27] MEDS ORDERED: *HR* Midazolam HCl 2 MG/2 ML VIAL IVP ONE (14:49)
[2018-11-27] MEDS ORDERED: 0.9 % Sodium Chloride 500 ML ONE (14:51)
--- NOTE | 2018-11-27 15:14 | Pre-Sedation Evaluation ---
Pre-sedation evaluation - Pre-sedation checklist Procedure: Random kidney biopsy Recent Vitals: Last Vital Signs Temp 98.1 F 11/27/18 12:05 Pulse 79 11/27/18 12:05 Resp 16 11/27/18 12:05 BP 139/76 11/27/18 12:05 Pulse Ox 97 11/27/18 12:05 H&P (including ROS) documented in medical record: Yes Previous reaction to sedatives/anesthetics: No Dietary Status: NPO 6 hours prior to procedure Dentition: No loose teeth or bridges ASA Classification *see protocol: CLASS II-Mild systemic disease Plan of Care: Pt appropriate candidate for procedure/moderate/conscious sedation, Risks/benefits of procedure/sedation discussed w/ patient/family
[2018-11-27] MEDS ORDERED: *HR* Midazolam HCl 2 MG/2 ML VIAL ONE (15:23)
--- NOTE | 2018-11-27 15:50 | IR Procedure Note ---
Date of procedure: 11/27/18 Consent Obtained: Verbal consent, Written consent Timeout: Correct patient and procedure verified, Correct site verified, Time out performed, Skin prep completed Local anesthetic: Lidocaine 1% Was there an help desk assistant present: No Estimated blood loss (cc): 2 Complications: None; Tolerated procedure well Indications: Renal failure Procedure Performed: Random kidney biopsy Site/Technique: CT guided random kidney biopsy performed Results/Findings (any specimens removed): Samples obtained from lower pole of the left kidney Post Procedure Treatment Plan: Bedrest x 3 hours Specimen: 4 18 gauge core needle biopsies
[2018-11-27] MEDS: Cholecalciferol (D-3) 1,000 UNIT (25MCG) TABLET PO SCH (17:10)
[2018-11-28] MEDS: *HR* Heparin 5,000 UNIT/ML VIAL SQ SCH ×2 (04:55→17:45)
[2018-11-28 05:19] LABS: Hematocrit 25.4 % (37.5-50.1); Hemoglobin 8.2 g/dL (12.9-16.9); Mean Corpuscular HGB Conc 32.3 g/dL (31.6-35.5); Mean Corpuscular Hemoglobin 28.2 pg (28.0-33.3); Mean Corpuscular Volume 87.3 fL (83.0-100.0); Mean Platelet Volume 9.5 fL (9.4-12.4); Platelet Count 290 K/mcL (140-400); Red Blood Count 2.91 M/mcL (4.19-5.50); White Blood Count 8.2 K/mcL (4.3-11.1)
[2018-11-28 05:41] LABS: Calcium 8.4 mg/dL (8.6-10.3); Potassium 5.5 mEq/L (3.5-5.1)
--- NOTE | 2018-11-28 08:34 | Internal Med Progress Note ---
<Lul Anglin - Last Filed: 11/28/18 15:46> Hospitalist Progress Note - Encounter Date of Encounter: 11/28/18 - Exam Vitals: Temp Pulse Resp BP Pulse Ox 98.2 F 77 18 158/85 99 11/28/18 11:59 11/28/18 11:59 11/28/18 11:59 11/28/18 11:59 11/28/18 11:59 - Assessment and Plan (1) Renal failure Current Visit: Yes Status: Suspected (2) Anemia Current Visit: Yes Status: Suspected (3) HTN (hypertension) Current Visit: Yes Status: Chronic (4) Tobacco abuse Current Visit: Yes Status: Chronic (5) Hyperkalemia Current Visit: Yes Status: Acute - Time Spent with Patient Total time spent is greater than 50% in coordination of care (as documented) at patient's floor/unit and/or counseling patient: Internal Medicine: Result - Labs CBC & Chem 7: 11/28/18 04:04 11/28/18 13:35 Labs: Short CBC 11/28/18 Range/Units 04:04 WBC 8.2 (4.3-11.1) K/mcL Hgb 8.2 L (12.9-16.9) g/dL Hct 25.4 L (37.5-50.1) % Plt Count 290 (140-400) K/mcL BMP 11/28/18 11/28/18 04:04 13:35 Sodium 138 135 L Potassium 5.5 H 6.3 H Chloride 112 H 110 H Carbon Dioxide 18 L 17 L BUN 69 H 69 H Creatinine 5.54 H 5.68 H Glucose 92 93 Calcium 8.4 L 8.6 - Impressions Impressions Echocardiogram 11/27/18 14:26 Impressions: LVEF 55-60%. Moderate left ventricular diastolic dysfunction. Normal right ventricular structure and function. No significant valvular dysfunction. No pulmonary hypertension based on TR signal obtained. Left Ventricular Wall Motion: Rest Echo Findings All wall segments showed normal motion. Findings: Study Quality * Technically adequate exam. ECG Findings * Normal sinus rhythm. Left Ventricle * LVEF 55-60%. * Moderate left ventricular diastolic dysfunction. * LV chamber size and wall thickness are normal. Right Ventricle * Normal right ventricular structure and function. Left Atrium * Moderately dilated left atrium. Right Atrium * Normal right atrial size. Aortic Valve * No aortic regurgitation. * Aortic valve not well visualized. * No aortic stenosis. Mitral Valve * Normal mitral valve structure. * No mitral stenosis. * Trace mitral regurgitation. Tricuspid Valve * Normal tricuspid valve structure. * Trace tricuspid regurgitation. * Estimated RA pressure is 3 mmHg. Pulmonic Valve * Pulmonic valve is not well visualized. * No pulmonic stenosis. * No pulmonic regurgitation. Pulmonary Artery * Pulmonary artery not well visualized. Aorta * Normally sized aortic root. Pericardium * There is no pericardial effusion present. Interatrial Septum * No evidence of PFO by color Doppler. IVC * The IVC is not dilated. Renal Biopsy CT 11/27/18 15:58 IMPRESSION: CT-guided random kidney biopsy. No immediate complications. D/ / Adolph Cuba MD / Adolph Cuba MD Interpreting Provider: Adolhp Cuba MD Consult Discharge Plan - Plan Referrals: Abner Bedolla [Primary Care Provider] - - Attending Attestation The history, physical exam, and medical decision making was performed by the medical student either while I was physically present and actively involved or I personally re-performed the exam and medical decision making. I have verified the accuracy of the medical student's documentation with regards to the history, physical exam findings, and medical decision making on 11/28/18. Mr Hawkins is currently admitted for acute renal failure. He remains moderate to high risk due to potential for worsening clinical status. Mr Hawkins wants to go home. Creatinine minimally improved. No new symptoms. No CP or SOB. Exam: Alert. Comfortable. NC. EOMI. Mucus membranes dry. Neck supple. Heart not tachy. No wheeze. Moves all extremities. No rash. I/P 1. renal failure - biopsy results pending. Slight improvement in creatinine. 2. Tobacco abuse - add nicotine patch 3. HTN - meds adjusted Further diagnoses and plan as above. <Morocho,Loc T - Last Filed: 11/28/18 17:33> Hospitalist Progress Note - Encounter Date of Encounter: 11/28/18 Time of Encounter: 08:34 - Subjective Interval History: Pt is a 48yo with h/o HTN who was seen at the ED due to preoperative clearance lab finding of elevated creatinine 6.35 at his PCP's office, Dr. Diehl and was admitted for acute DIONNE. Pt was seen this morning awake laying in bed chatting with his mother sitting in the chair at bedside. He stated that he "wants to go home" and feels undergoing a renal biopsy yesterday, he denies any pain whatsoever. He states that he has a doctor's appointment on Saturday that he cannot miss out on and would like to be discharged by the latest on Saturday. He denies any fevers, chills, nausea, vomiting, chest pain, shortness of breath, dysuria, urinary frequency, urgency or hesitancy and does not seem to grasp the gravity of the severity of his failing kidneys. When asked about what we could do to make his stay better, he requested a cigarette but was amenable to a nicotine patch when told cigarette smoking is not allowed on hospital premises. He has no other concerns. - Exam Vitals: Temp Pulse Resp BP Pulse Ox 98.6 F 92 18 169/91 95 11/28/18 08:00 11/28/18 08:00 11/28/18 08:00 11/28/18 08:00 11/28/18 08:00 Exam: General: Patient was found awake laying in bed chatting with his mother sitting in the chair at bedside in no apparent distress. He was alert and cooperative with the exam and answered all questions. Heart: RRR, without murmurs, rubs, or gallops Lungs: CTA bilaterally with no wheezes or rhonchi Abd: Normal active bowel sounds x 4 quadrants, non distended, soft and non tender to palpation Ext: No LE edema - Assessment and Plan (1) [id number] kidney injury Current Visit: Yes Status: Acute Assessment and Plan: - Creatinine down trending a little today at 5.54 from 5.99 yesterday with current GFR of 11 - BUN bumped from 69 today from 67 yesterday - Urine total protein of 126, microalbumin / creatinine ratio of 1,066 and protein / creatinine ration of 1.97 - Nephrology on board - recommending possible discharge tomorrow to follow up as outpatient basis provided hyperkalemia normalizes (2) Anemia Current Visit: Yes Status: Chronic Assessment and Plan: - Likely due to iron deficiency anemia related to his renal failure - Improving with H&H uptrending today with Hb at 8.2 - Will continue to monitor and trend (3) HTN (hypertension) Current Visit: Yes Status: Chronic Assessment and Plan: - Seems BP was still elevated today with BP of 169/91 - Amlodipine is increased from 5mg to 10mg for better control of his HTN - Started Coreg 3.125mg BID for better BP control - Echo done shows LVEF of 55-60% with moderate LV diastolic dysfunction (4) Hyperkalemia Current Visit: Yes Status: Acute Assessment and Plan: - Seems to be up trending as bumped from 5.1 to 5.5 today - Nephrology recommends if repeat BMP tomorrow for monitoring K levels (5) Tobacco use disorder Current Visit: Yes Status: Acute Assessment and Plan: - Pt is amenable to having nicotine patch for assistance with cigarette/nicotine cravings - therefore a nicotine patch is ordered - Pt not interested in quitting smoking at the moment DVT Prophylaxis: - Pt is ambulatory - Time Spent with Patient Total time spent is greater than 50% in coordination of care (as documented) at patient's floor/unit and/or counseling patient: Internal Medicine: Result - Labs CBC & Chem 7: 11/28/18 04:04 11/28/18 13:35 Labs: Short CBC 11/28/18 Range/Units 04:04 WBC 8.2 (4.3-11.1) K/mcL Hgb 8.2 L (12.9-16.9) g/dL Hct 25.4 L (37.5-50.1) % Plt Count 290 (140-400) K/mcL BMP 11/28/18 04:04 Sodium 138 Potassium 5.5 H Chloride 112 H Carbon Dioxide 18 L BUN 69 H Creatinine 5.54 H Glucose 92 Calcium 8.4 L - Impressions Impressions Echocardiogram 11/27/18 14:26 Impressions: LVEF 55-60%. Moderate left ventricular diastolic dysfunction. Normal right ventricular structure and function. No significant valvular dysfunction. No pulmonary hypertension based on TR signal obtained. Left Ventricular Wall Motion: Rest Echo Findings All wall segments showed normal motion. Findings: Study Quality * Technically adequate exam. ECG Findings * Normal sinus rhythm. Left Ventricle * LVEF 55-60%. * Moderate left ventricular diastolic dysfunction. * LV chamber size and wall thickness are normal. Right Ventricle * Normal right ventricular structure and function. Left Atrium * Moderately dilated left atrium. Right Atrium * Normal right atrial size. Aortic Valve * No aortic regurgitation. * Aortic valve not well visualized. * No aortic stenosis. Mitral Valve * Normal mitral valve structure. * No mitral stenosis. * Trace mitral regurgitation. Tricuspid Valve * Normal tricuspid valve structure. * Trace tricuspid regurgitation. * Estimated RA pressure is 3 mmHg. Pulmonic Valve * Pulmonic valve is not well visualized. * No pulmonic stenosis. * No pulmonic regurgitation. Pulmonary Artery * Pulmonary artery not well visualized. Aorta * Normally sized aortic root. Pericardium * There is no pericardial effusion present. Interatrial Septum * No evidence of PFO by color Doppler. IVC * The IVC is not dilated. Renal Biopsy CT 11/27/18 15:58 IMPRESSION: CT-guided random kidney biopsy. No immediate complications. D/ / Adolph Cuba MD / Adolph Cuba MD Interpreting Provider: Adolph Cuba MD <Lul Anglin A - Last Filed: 11/28/18 15:46> (1) Renal failure Qualifiers: Renal failure chronicity: unspecified chronicity Qualified Code(s): N19 - Unspecified kidney failure (2) Anemia Qualifiers: Chronic kidney disease stage: unspecified stage (3) HTN (hypertension) Qualifiers: Hypertension type: unspecified Qualified Code(s): I10 - Essential (primary) hypertension <Morocho,Loc T - Last Filed: 11/28/18 17:33> (1) [id number] kidney injury Qualifiers: Acute renal failure type: unspecified Chronic kidney disease stage: unspecified stage Qualified Code(s): N17.9 - Acute kidney failure, unspecified; N18.9 - Chronic kidney disease, unspecified (2) Anemia Qualifiers: Anemia type: iron deficiency Iron deficiency anemia type: unspecified iron deficiency Qualified Code(s): D50.9 - Iron deficiency anemia, unspecified (3) HTN (hypertension) Qualifiers: Hypertension type: unspecified Qualified Code(s): I10 - Essential (primary) hypertension
--- NOTE | 2018-11-28 08:58 | Nephrology Progress Note ---
Date of Encounter: 11/28/18 Time of Encounter: 08:58 - Assessment and Plan (1) Renal failure Current Visit: Yes Status: Suspected 48M presents after abnormal lab work showing a creatinine of greater than 6 outpatient with no known history of renal dysfunction Patient had not had recent laboratory work done and is no previous records from stays at this hospital so chronicity of renal dysfunction is unknown Patient has been using ibuprofen 800 mg 3 times a day for extended period of time and was recently started on YOLANDA-i which could be contributing to declining renal function. Creatinine/BUN on admission of 6.35 and 70 with Estimated GFR of 9 UA with large amounts of blood and urine total protein of 126 indicating probable nephritic syndrome Retroperitoneal ultrasound found echogenic renal cortex which may indicate medical renal disease NSAID-induced AIN leading to Chronic Interstitial Nephritis a potential cause of renal dysfunction, which might have been acutely worsened by addition of YOLANDA-i -Most recent BMP with creatinine/BUN of 5.68 and 69 with estimated GFR up to 13 -Calculated osmolarity down to 300 -CT-guided renal biopsy performed on 11/28, awaiting pathology results -I&Os over past 24 hours of -1300, continue to monitor -Continue to monitor pt for uremic symptoms with low threshold for temporary dialysis catheter placement if pt decompensates. -Monitor BMP for acute changes in electrolytes -Renal Diet and fluid restriction to 1.5 L per day -Hold Lisinopril and permanently d/c ibuprofen use -Strict I&O and daily weights Qualifiers: Renal failure chronicity: unspecified chronicity Qualified Code(s): N19 - Unspecified kidney failure (2) Anemia Current Visit: Yes Status: Chronic H&H currently stable at 8.2 and 25.4 Iron of 44 Percent saturation 17 Transferrin 185 -Most likely multifactorial with renal dysfunction and iron deficiency -Continue patient on ferrous sulfate 325 twice a day -Continue to monitor H&H Qualifiers: Anemia type: iron deficiency Iron deficiency anemia type: unspecified iron deficiency Qualified Code(s): D50.9 - Iron deficiency anemia, unspecified (3) Hyperkalemia Current Visit: Yes Status: Acute Potassium of 5.5, up from yesterday potassium was 5.1 Secondary to patient's decreased renal function -Placed on renal diet -Repeat BMP ordered to check for progression -We will initiate Kayexalate treatment if potassium is still elevated despite diet change (4) Vitamin D deficiency Current Visit: Yes Status: Acute Continue vitamin D supplementation to mitigate secondary parathyroidism. (5) Proteinuria Current Visit: Yes Status: Acute Spot total urine protein of 126 Microalbumin/creatinine ratio of 1066 Protein/creatinine ratio of 1.97 -Most likely employment program representative of a nephritic syndrome -Treatment as stated above, will follow renal biopsy Qualifiers: Proteinuria type: unspecified Qualified Code(s): R80.9 - Proteinuria, unspecified (6) Hematuria Current Visit: Yes Status: Acute Large amounts of urine blood found on UA with urine microscopic RBCs of 30-50 -Treatment and plan as stated above, will follow renal biopsy Qualifiers: Hematuria type: gross Qualified Code(s): R31.0 - Gross hematuria Subjective Principal diagnosis: abnormal labs Interval history: Patient states he is feeling fine and is ready to go home. Discussed with patient lab results including potassium of 5.5 earlier today and need for repeat BMP. Return to discuss findings of further increasing potassium up to 6.3 and need for further treatment to prevent cardiac issues. The patient denies chest pain, shortness breath, nausea, vomiting, diarrhea, dysuria, flank pain, fevers, chills, or abdominal pain. Objective - Vital Signs Vital signs: Vital Signs Temp Pulse Resp BP Pulse Ox 11/28/18 08:00 98.6 F 92 18 169/91 95 11/28/18 05:03 98.3 F 80 14 137/83 98 11/28/18 00:21 98.9 F 85 12 177/88 96 11/27/18 19:27 98.6 F 78 14 172/84 99 11/27/18 15:44 98 22 134/83 97 11/27/18 15:39 72 11 138/92 98 11/27/18 15:34 76 8 159/101 98 11/27/18 15:33 80 9 154/96 99 11/27/18 15:23 83 14 171/103 99 11/27/18 12:05 98.1 F 79 16 139/76 97 Intake and Output 11/27/18 11/28/18 11/28/18 23:59 07:59 15:59 Intake Total 0 / 1480 Output Total 500 / 2180 600 / 600 Balance -500 / -700 -600 / -600 Intake: Oral 0 / 480 Output: Urine 500 / 2180 600 / 600 Other: Weight 136.5 kg Patient Weight 11/28/18 23:59 Weight 136.5 kg - General Appearance General appearance: Present: well-developed, well-nourished EENT: Present: mucous membranes moist (EOMI. ) Neck: Present: no carotid bruit, supple Respiratory: Present: clear Cardiology: Present: no murmurs, regular rate, regular rhythm Gastrointestinal: Present: normoactive bowel sounds, no tenderness, no guarding Integumentary: Present: no rash, warm and dry Neurologic: Present: no focal deficit, alert and oriented x3 Musculoskeletal: Present: no deformities, no erythema Psychiatric: Present: mood/affect appropriate, cooperative - Lab 11/28/18 04:04 11/28/18 13:35 Most recent lab results 11/28/18 04:04 Calcium 8.4 L Consult Discharge Plan - Plan Referrals: Abner Bedolla [Primary Care Provider] -
[2018-11-28] MEDS: amLODIPine 5 MG TABLET PO SCH (10:04)
[2018-11-28] MEDS: Gabapentin 100 MG CAPSULE PO SCH ×3 (10:05→21:25)
[2018-11-28] MEDS: Cholecalciferol (D-3) 1,000 UNIT (25MCG) TABLET PO SCH (10:05)
[2018-11-28] MEDS: Nicotine 21 MG PATCH.TD24 TD SCH (12:13)
[2018-11-28 14:05] LABS: Calcium 8.6 mg/dL (8.6-10.3); Potassium 6.3 mEq/L (3.5-5.1)
[2018-11-28] MEDS ORDERED: Insulin Human Regular 10 UNIT in 0.9 % Sodium Chloride 10 ML IV ONE (14:53)
[2018-11-28] MEDS ORDERED: *HR* Dextrose 50 % in Water (Syg) 50 ML SYRINGE IVP ONE (14:53)
[2018-11-28] MEDS ORDERED: Calcium Gluconate 1gm/50mL 1 GM/50 ML BAG IVPB ONE (15:45)
[2018-11-28 20:22] LABS: Calcium 8.7 mg/dL (8.6-10.3); Potassium 5.3 mEq/L (3.5-5.1)
[2018-11-29] MEDS: *HR* Heparin 5,000 UNIT/ML VIAL SQ SCH (06:08)
[2018-11-29 06:58] LABS: Calcium 8.5 mg/dL (8.6-10.3); Potassium 5.5 mEq/L (3.5-5.1)
[2018-11-29 07:44] VITALS: BP 133/82
--- NOTE | 2018-11-29 08:51 | Discharge Summary ---
Orders not resulted at time of discharge: Pending orders 11/26/18 16:02 JOSE LUIS IgG ARIA rflx IFA Routine Anti-Neutrophil Cyto Ab, IgG Routine Anti-Streptolysin O Antibody Routine 11/28/18 11:49 Surgical Pathology [PTH] Routine Date of Encounter: 11/29/18 Hospital course: Mr. Hawkins is a 48 year old male - Time Spent with Patient Total time spent providing and/or coordinating discharge services: - Discharge Medications Prescriptions: No Action Gabapentin [Neurontin] 300 mg PO TID Lisinopril/Hydrochlorothiazide [Lisinopril-Hctz 20-12.5 mg Tab] 1 each PO DAILY Ibuprofen [Ibu] 800 mg PO BID PRN PRN Reason: Pain Home Medications: Gabapentin [Neurontin] 300 mg PO TID 11/26/18 [History] Ibuprofen [Ibu] 800 mg PO BID PRN 11/26/18 [History] Lisinopril/Hydrochlorothiazide [Lisinopril-Hctz 20-12.5 mg Tab] 1 each PO DAILY 11/26/18 [History] Allergies/Adverse Reactions: Allergy/AdvReac Type Severity Reaction Status Date / Time Penicillins [PCN] Allergy Rash Verified 11/26/18 18:14 Date of admission: 11/26/18 14:46 Primary care physician: Abner Bedolla Consults: 11/26/18 14:19 Consult to Nephrology [CONS] Stat Consulting Provider: Kidney Lucy/VALERIE/KEMAR/LIA Reason for Consult: renal failure Call Completed: No 11/27/18 10:19 Consult to Interventional Radiology [CONS] Routine Consulting Provider: Radiology Interventional Cols Reason for Consult: Renal biopsy tomorrow please 11/28/18 NPO at midnight tonight. Time Notified: 10:20 Call Completed: Yes - Constitutional Vitals: Temp Pulse Resp BP Pulse Ox 97.8 F 77 18 133/82 99 11/29/18 07:43 11/29/18 07:43 11/29/18 07:43 11/29/18 07:43 11/29/18 07:43 General appearance: Present: A&O X 3, pleasant, answers questions appropriately - Patient Status Condition: Serious - Discharge Instructions Follow Up With: Abner Bedolla [Primary Care Provider] -
--- NOTE | 2018-11-29 09:16 | Discharge Summary ---
- NOTES TO OUTPATIENT PROVIDER Notes to Outpatient Provider: Pt sent to ED due to acute renal failure. Admitted and had renal biopsy. Following up outpatient. Orders not resulted at time of discharge: Pending orders 11/26/18 16:02 JOSE LUIS IgG ARIA rflx IFA Routine Anti-Neutrophil Cyto Ab, IgG Routine Anti-Streptolysin O Antibody Routine 11/28/18 11:49 Surgical Pathology [PTH] Routine Date of Encounter: 11/29/18 Time of Encounter: 09:14 - Discharge Diagnosis (1) Hyperkalemia Priority: Primary Status: Acute (2) Renal failure Priority: Secondary Status: Suspected Qualifiers: Renal failure chronicity: chronic Chronic kidney disease stage: stage 5, not on chronic dialysis Qualified Code(s): N18.5 - Chronic kidney disease, stage 5 (3) Anemia Priority: Secondary Status: Suspected Qualifiers: Anemia type: due to chronic kidney disease Chronic kidney disease stage: stage 5, not on chronic dialysis Qualified Code(s): N18.5 - Chronic kidney disease, stage 5; D63.1 - Anemia in chronic kidney disease (4) HTN (hypertension) Priority: Secondary Status: Chronic Qualifiers: Hypertension type: renovascular hypertension Qualified Code(s): I15.0 - Renovascular hypertension (5) Tobacco abuse Priority: Secondary Status: Chronic Hospital course: Mr. Hawkins is a 48 year old male presented to ED after PCP called with abnormal labs. Mr Hawkins presented to ED with abnormal labs. He had been seen for preop clearance and found to have HTN. He was started on LisinoprilHCTZ and had labs drawn. Creatinine markedly elevated. He was admitted from ED. He admitted to significant ibuprofen use. He was hypertensive and had hematuria. He was started on IV fluids and seen by renal service. Potassium elevated and treated as well. On 11/28 he underwent renal biopsy. Results are pending. His labs remained stable and he did not need urgent dialysis. He is to be discharged home on renal diet with outpatient follow up. - Time Spent with Patient Total time spent providing and/or coordinating discharge services: 42min - Discharge Medications Prescriptions: New Carvedilol [Coreg] 3.125 mg PO BIDWM #30 tablet Ferrous Sulfate 325 mg PO BIDWM #60 tablet Gabapentin [Neurontin] 100 mg PO TID #90 capsule Nicotine Patch [Nicoderm] 21 mg TD DAILY patch.td24 amLODIPine [Norvasc] 10 mg PO DAILY #30 tablet Sodium Bicarbonate 650 mg PO BID #60 tablet Cholecalciferol (D-3) [Vitamin D] 1,000 unit PO DAILY #30 tablet Sodium Zirconium Cyclosilicate [Lokelma] 10 gm PO DAILY #30 powd.pack Carvedilol [Coreg] 3.125 mg PO BIDWM #6 tablet Ferrous Sulfate 325 mg PO BIDWM #6 tablet Gabapentin [Neurontin] 100 mg PO TID #9 capsule amLODIPine [Norvasc] 10 mg PO DAILY #6 tablet Sodium Bicarbonate 650 mg PO BID #6 tablet Cholecalciferol (D-3) [Vitamin D] 1,000 unit PO DAILY #3 tablet Discontinued Gabapentin [Neurontin] 300 mg PO TID Lisinopril/Hydrochlorothiazide [Lisinopril-Hctz 20-12.5 mg Tab] 1 each PO DAILY Ibuprofen [Ibu] 800 mg PO BID PRN PRN Reason: Pain Home Medications: Carvedilol [Coreg] 3.125 mg PO BIDWM #30 tablet 11/29/18 [Rx] Carvedilol [Coreg] 3.125 mg PO BIDWM #6 tablet 11/29/18 [Rx] Cholecalciferol (D-3) [Vitamin D] 1,000 unit PO DAILY #3 tablet 11/29/18 [Rx] Cholecalciferol (D-3) [Vitamin D] 1,000 unit PO DAILY #30 tablet 11/29/18 [Rx] Ferrous Sulfate 325 mg PO BIDWM #6 tablet 11/29/18 [Rx] Ferrous Sulfate 325 mg PO BIDWM #60 tablet 11/29/18 [Rx] Gabapentin [Neurontin] 100 mg PO TID #9 capsule 11/29/18 [Rx] Gabapentin [Neurontin] 100 mg PO TID #90 capsule 11/29/18 [Rx] Nicotine Patch [Nicoderm] 21 mg TD DAILY patch.td24 11/29/18 [Rx] Sodium Bicarbonate 650 mg PO BID #6 tablet 11/29/18 [Rx] Sodium Bicarbonate 650 mg PO BID #60 tablet 11/29/18 [Rx] Sodium Zirconium Cyclosilicate [Lokelma] 10 gm PO DAILY #30 powd.pack 11/29/18 [Rx] amLODIPine [Norvasc] 10 mg PO DAILY #30 tablet 11/29/18 [Rx] amLODIPine [Norvasc] 10 mg PO DAILY #6 tablet 11/29/18 [Rx] Allergies/Adverse Reactions: Allergy/AdvReac Type Severity Reaction Status Date / Time Penicillins [PCN] Allergy Rash Verified 11/26/18 18:14 Date of admission: 11/26/18 14:46 Primary care physician: Abner Bedolla Consults: 11/26/18 14:19 Consult to Nephrology [CONS] Stat Consulting Provider: Kidney Lucy/VALERIE/KEMAR/LIA Reason for Consult: renal failure Call Completed: No 11/27/18 10:19 Consult to Interventional Radiology [CONS] Routine Consulting Provider: Radiology Interventional Cols Reason for Consult: Renal biopsy tomorrow please 11/28/18 NPO at midnight tonight. Time Notified: 10:20 Call Completed: Yes Discharging clinician: Lul Anglin Anticipated date of discharge: 11/29/18 - Constitutional Vitals: Temp Pulse Resp BP Pulse Ox 97.8 F 77 18 133/82 99 11/29/18 07:43 11/29/18 07:43 11/29/18 07:43 11/29/18 07:43 11/29/18 07:43 General appearance: Present: A&O X 3, pleasant, answers questions appropriately Exam: See below - Head Head exam: Present: atraumatic, normocephalic - Eye Eye exam: Present: EOMI, conjuntiva pink - ENT ENT exam: Present: mucous membranes moist - Neck Neck exam general surgery: Present: supple - Respiratory Respiratory exam: Present: CTAB. Absent: rhonchi, wheezes - Cardiovascular Cardiovascular exam: Present: RRR. Absent: systolic murmur, tachycardia - GI/Abdominal GI/Abdominal exam: Present: soft. Absent: tenderness - Extremities Exam Extremities exam: Present: warm. Absent: tenderness - Neurological Exam Neurological exam: Present: alert, oriented X3, no focal deficits - Skin Skin exam: Present: dry, warm - Patient Status Disposition: Home, Self-Care Condition: Good Functional capacity at discharge: independent ambulation Overall status at discharge: patient is progressing back to baseline - Discharge Instructions Follow Up With: Abner Bedolla [Primary Care Provider] - (Please follow up in 1-2 weeks.) Jayjay Javed, [Partnered Physician] - (Will call with appt) - Diet and Activity Activity: resume usual activities as tolerated Diet: low salt diet, other (Renal diet)
[2018-11-29] MEDS: amLODIPine 5 MG TABLET PO SCH (09:59)
[2018-11-29] MEDS: Nicotine 21 MG PATCH.TD24 TD SCH (09:59)
[2018-11-29] MEDS: Cholecalciferol (D-3) 1,000 UNIT (25MCG) TABLET PO SCH (09:59)
[2018-11-29] MEDS: Gabapentin 100 MG CAPSULE PO SCH (10:00)
[2018-11-29 10:28] LABS: ANA IgG by ELISA NONE DETECTED (None Detected)
--- NOTE | 2018-11-29 10:40 | Nephrology Progress Note ---
Date of Encounter: 11/29/18 Time of Encounter: 08:45 - Assessment and Plan (1) DIONNE (acute kidney injury) Status: Acute Stable GFR near 10 without overt uremic symptoms s/p renal biopsy but pending results. Not requiring HD initiation at this time, and pt is strongly asking to be released for outpt follow up. Recommend a very low K+ diet, plus quick follow up in the office and will help arrange Lokelma for recurrent mild hyperkalemia. SE profiles and R/B/I/A for this Rx was discussed in detail. Spoke with his outpt Pharmacist to help arrange and start the P.A. Meanwhile to continue the oral sodium bicarb for his NAGMA, which should also minimize risks for hyperkalemia. Will need follow up labs and I counseled him on red flag symptoms and signs and what to do if he worsens. He voiced appreciation. Discussed in detail with the Hospitalist team. Thank you Update: I also spoke with the patient's outside pharmacist at [facility], and helped discuss an approach to arrange for a prior authorization to quickly approve this Rx. (2) Hyperkalemia Status: Acute Asymptomatic. Rec outpt Lokelma, which is not on the inpt formulary. See above. Will help arrange an outpt P.A. via the office. (3) Anemia Status: Suspected Goal Hgb is 10-11. He did not affirm seeing blood in the urine nor any flank pains. Roughly stable H/H and I do not suspect any retroperitoneal bleed at this time. Qualifiers: Anemia type: due to chronic kidney disease Chronic kidney disease stage: stage 5, not on chronic dialysis Qualified Code(s): N18.5 - Chronic kidney disease, stage 5; D63.1 - Anemia in chronic kidney disease (4) Vitamin D deficiency Status: Acute Agree with vit D replacement. Subjective Principal diagnosis: abnormal labs Interval history: The patient was seen and examined earlier in the day. He again affirmed having no uremic symptoms such as nausea, vomiting, diarrhea, confusion, shortness of breath, or any decrease in urine output. Reports feeling better as compared to when he was first admitted. He again asked to be released. He affirmed understanding the renal diet, which is low in potassium. He voiced having no problems with following/adhering to this diet. He also voiced understanding that if he started to feel worse, to come back to the emergency department. He did not affirm having any blood in the urine, or flank pains after the renal biopsy. The patient's hospitalist informed me that her senior resident found his renal biopsy late Saturday, and he signed the requisition form to have it delivered to the renal pathologist (normally the requisition form is signed and on the day of the renal biopsy, which was before I was on-call/on-service) The renal biopsy results are not yet available to me. Objective - Vital Signs Vital signs: Vital Signs Temp Pulse Resp BP Pulse Ox 11/29/18 10:05 99 11/29/18 07:43 97.8 F 77 18 133/82 99 11/29/18 03:37 98.2 F 98 16 137/82 98 11/29/18 00:00 98.3 F 78 16 144/82 98 11/28/18 21:29 98 11/28/18 19:59 97.6 F 81 16 146/80 98 11/28/18 16:13 97.6 F 70 18 175/82 97 11/28/18 11:59 98.2 F 77 18 158/85 99 Intake and Output 11/28/18 11/29/18 11/29/18 23:59 07:59 15:59 Other: Weight 135 kg Blood Glucose* 124 Patient Weight 11/29/18 23:59 Weight 135 kg - General Appearance General appearance: Present: well-developed, well-nourished, appears started age, obese EENT: Present: ATNC, PERRL, mucous membranes moist Neck: Present: no JVD, supple Respiratory: Present: no kyphosis, clear Cardiology: Present: edema (trace pedal edema, which the pt described as improved as compared to earlier in this hospitalization), regular rate, regular rhythm, normal S1, normal S2 Gastrointestinal: Present: normoactive bowel sounds, no tenderness, no guarding, obese Additional Comments: No flank pains were note on palpation. Integumentary: Present: warm and dry Neurologic: Present: no focal deficit, no asterixis, alert and oriented x3 Musculoskeletal: Present: no deformities, no erythema, no cyanosis Psychiatric: Present: mood/affect appropriate, cooperative - Lab 11/28/18 04:04 11/29/18 05:12 Most recent lab results 11/29/18 05:12 Calcium 8.5 L Consult Discharge Plan - Plan Referrals: Abner Bedolla [Primary Care Provider] - (Please follow up in 1-2 weeks.) Jayjay Javed DO [Partnered Physician] - (Will call with appt) Prescriptions: Carvedilol [Coreg] 3.125 mg PO BIDWM #30 tablet Transmission Status: Received by [facility] Carvedilol [Coreg] 3.125 mg PO BIDWM #6 tablet Transmission Status: Received by [facility] 1427 Ferrous Sulfate 325 mg PO BIDWM #60 tablet Transmission Status: Received by [facility] Ferrous Sulfate 325 mg PO BIDWM #6 tablet Transmission Status: Received by [facility] 1427 Sodium Zirconium Cyclosilicate [Lokelma] 10 gm PO DAILY #30 powd.pack Transmission Status: Received by [facility]. Gabapentin [Neurontin] 100 mg PO TID #90 capsule Transmission Status: Received by [facility] Gabapentin [Neurontin] 100 mg PO TID #9 capsule Transmission Status: Received by [facility] 1427 amLODIPine [Norvasc] 10 mg PO DAILY #30 tablet Transmission Status: Received by [facility] amLODIPine [Norvasc] 10 mg PO DAILY #6 tablet Transmission Status: Received by [facility] 1427 Sodium Bicarbonate 650 mg PO BID #60 tablet Transmission Status: Received by [facility] Sodium Bicarbonate 650 mg PO BID #6 tablet Transmission Status: Received by [facility] 1427 Cholecalciferol (D-3) [Vitamin D] 1,000 unit PO DAILY #30 tablet Transmission Status: Received by [facility] Cholecalciferol (D-3) [Vitamin D] 1,000 unit PO DAILY #3 tablet Transmission Status: Received by [facility] 1427
[2018-11-30 10:15] LABS: Anti-Streptolysin O Antibody 75 IU/mL (0-330)
--- NOTE | 2018-12-01 18:05 | Electrocardiograph Report ---
[place] [id number] Test Date: 2018-11-28 Pat Name: Raheel Hawkins Department: 112 Room: 2A38 Gender: M Certification And Selection Specialist: : [id number] Requested By: Bradley Ro Order Number: [id number] Reading MD: Annelise Ross Measurements Intervals [place] Rate: 83 P: 57 WY: 148 QRS: 76 QRSD: 94 T: 48 QT: 348 QTc: 388 Interpretive Statements SINUS RHYTHM Electronically Signed On 12-01-2018 18:03:53 EDT by Annelise Ross
== END 2018-11-29 11:17 | disposition home or self-care (01) | DRG 683 ==
LOC: EMEROOARM 12:33 → 2NENU 12:33 → OBSVTOIN 14:46 → SUATTDRO 14:46 → 2ANU 14:47
PROVIDERS: ADMIT Pharmacist; ATTEND Internal Medicine